=== PATIENT | female | born 1990 | race Caucasian/White ===

== ENCOUNTER 2017-04-20 16:03 | Emergency (ER) | payer MEDICAID ==
[~2017-04-20] VITALS: Ht 152.4 cm; Wt 74.1 kg
[2017-04-20 16:05] VITALS: BP 115/84
[2017-04-20] MEDS ORDERED: DEXAMETHASONE 4 MG/ML, 1ML IM ONE (16:30)
[2017-04-20] MEDS ORDERED: DEXAMETHASONE 4 MG/ML, 5ML ONE (16:59)
[2017-04-20] MEDS ORDERED: DEXAMETHASONE 4 MG TABLET PO ONE (17:00)
== END 2017-04-20 17:08 | disposition home or self-care (01) ==
LOC: ED 16:55
DX: J02.0 Streptococcal pharyngitis (principal); F17.200 Nicotine dependence, unspecified, uncomplicated
CPT/HCPCS: 87880; 99283

== ENCOUNTER 2017-09-06 16:03 | Emergency (ER) | payer MEDICAID ==
[~2017-09-06] VITALS: Ht 157.5 cm; Wt 71.8 kg
[2017-09-06 16:19] VITALS: BP 129/81
[2017-09-06] MEDS ORDERED: KETOROLAC 30 MG/1 ML ONE (16:52)
[2017-09-06] MEDS ORDERED: DIAZEPAM 5 MG TABLET ONE (16:52)
[2017-09-06] MEDS ORDERED: DIAZEPAM 5 MG TABLET PO ONE (17:00)
[2017-09-06] MEDS ORDERED: KETOROLAC 30 MG/1 ML IM ONE (17:00)
== END 2017-09-06 17:24 | disposition home or self-care (01) ==
LOC: ED 17:18
DX: M54.2 Cervicalgia (principal); R20.2 Paresthesia of skin
CPT/HCPCS: 96372; 99283; J1885